=== PATIENT | female | born 1995 | race Two or more races ===

== ENCOUNTER 2025-09-19 17:31 | Emergency (ER) | payer OTHER ==
[~2025-09-19] VITALS: Ht 157.5 cm; Wt 61.2 kg
[2025-09-19 17:51] VITALS: TEMP 97.8
[2025-09-19 18:04] LABS: PLATELET COUNT (AUTO) 285 K/uL (150-450); RED BLOOD CELL COUNT(AUTO) 5.19 MIL/uL (4.0-5.2); RED CELL DISTRIBUTION WIDTH 13.7 % (11.5-15.0); WHITE BLOOD COUNT (AUTO) 9.9 K/uL (4.3-11.0)
[2025-09-19 18:08] LABS: PREGNANCY TEST URINE QUAL POSITIVE (NEGATIVE)
[2025-09-19 18:11] LABS: CALCIUM, SERUM 9.3 mg/dL (8.5-10.1); CREATININE 0.5 mg/dL (0.6-1.3); SODIUM SERUM 135.0 mmol/L (136-145); UREA NITROGEN, BLOOD 6.0 mg/dL (7-18)
[2025-09-19] MEDS ORDERED: ONDA4TAB5 PO (18:19)
[2025-09-19] MEDS ORDERED: PREN-18 PO (18:36)
[2025-09-19] MEDS ORDERED: ACET325C7 PO (18:36)
[2025-09-19] MEDS ORDERED: ONDANSETRON HCL/PF 4 MG/2 ML VIAL ONE (18:39)
[2025-09-19] MEDS ORDERED: ACETAMINOPHEN 325 MG TABLET ONE (18:40)
[2025-09-19] MEDS: IV NS 0.9% 1,000 ML BAG IV ONE (18:46)
[2025-09-19] MEDS: ONDANSETRON HCL/PF 4 MG/2 ML VIAL IVP ONE (18:46)
[2025-09-19] MEDS: ACETAMINOPHEN 325 MG TABLET PO ONE (18:47)
[2025-09-19] MEDS ORDERED: DOXY1TAB4 PO (20:12)
[2025-09-19 20:24] VITALS: BP 127/79; O2SAT 99
== END 2025-09-19 20:25 | disposition home or self-care (01) ==
LOC: ER 17:46
DX: O26.891 Other specified pregnancy related conditions, first trimester (principal); R51.9 Headache, unspecified; Z3A.01 Less than 8 weeks gestation of pregnancy
CPT/HCPCS: 99284; 96360; 76856; 85025; 80048; 84703; 36415; 84702; J7030; J2405

== ENCOUNTER 2025-10-06 23:19 | Emergency (ER) | payer OTHER ==
[~2025-10-06 23:19] MED LIST: ACET325C7 PO; DOXY1TAB4 PO; ONDA4TAB5 PO; PREN-18 PO
== END 2025-10-07 01:15 | disposition home or self-care (01) ==
LOC: ER 23:26
DX: I10 Essential (primary) hypertension (principal); Z53.21 Procedure and treatment not carried out due to patient leaving prior to being seen by health care provider